=== PATIENT | female | born 1970 | race Caucasian/White ===

== ENCOUNTER 2018-10-18 11:53 | Day surgery (SDC) | payer OTHER, SELFPAY ==
[2018-10-18] VITALS (7 sets, daily range): BP systolic 108–118; BP diastolic 61–77; PULSE 80–93; RESP 14–20; TEMP 36.3–36.8; O2SAT 97–99; BMI 32.6
[2018-10-18] MEDS: SODIUM CHLORIDE 0.9% 1,000 ML 200 ML IV (12:18)
--- NOTE | 2018-10-18 12:40 | P.HP_ITS ---
History of Present Illness Date Patient Seen: 10/18/18 Time Patient Seen: 12:38 Chief complaint: [id number] Narrative: 48yo F for first low risk screening colonoscopy. No family history, no alarm symptoms. Had extended diarrhea after long travel earlier this year but nothing on workup and has resolved. Patient History Medical History Obstructive sleep apnea of adult (Chronic) Snoring (Chronic) GERD (gastroesophageal reflux disease) (Chronic) Surgical History History of third molar tooth extraction Family History Father Age: 80 Diabetes mellitus Heart disease Grandfather Cancer Grandfather Heart disease Social History (Updated 06/25/18 @ 20:33 by JASWANT Mathews) marital status: details: to Scott Bosch, lives in [place] household members: spouse lives independently: Yes caregiver/support person: No housing: house Family & Social History Family History Father Age: 80 Diabetes mellitus Heart disease Grandfather Cancer Grandfather Heart disease Social History: household members spouse lives independently Yes caregiver/support person No Meds Home Medications Medication Instructions Recorded Confirmed Type norgestimate-ethinyl estradiol 1 ea PO QDAY #3 packet 04/12/17 10/18/18 Rx [Ortho Tri-Cyclen (28)] Resprionics Dreamstation CPAP #1 ea 06/22/18 06/22/18 History Allergies Allergy/AdvReac Type Severity Reaction Status Date / Time No Known Drug Allergies Allergy Unverified 06/22/18 15:59 Review of Systems Constitutional Constitutional: Reports as per HPI Exam Vital Signs (past 8 hours): - 10/18/18 12:15 Temperature 97.4 F L Pulse Rate 89 Respiratory Rate 16 Blood Pressure 116/72 Pulse Oximetry 97 Oxygen Delivery Method Room Air Narrative Exam Narrative: AAO, NAD, female of healthy weight EOMI, MMM, no scleral icterus unlabored RA soft, nt/nd MAEW visible skin dry and intact Assessment & Plan (1) Screening for colorectal cancer: Current visit: Yes Status: Acute Assessment & Plan narrative: low risk screening colonoscopy, all R/B/A discussed and pt wishes to proceed
[2018-10-18] MEDS: MIDAZOLAM 5 MG/5 ML VIAL IV (13:30)
[2018-10-18] MEDS: fentaNYL 250 MCG/5 ML INJ IV (13:31)
[2018-10-18] MEDS: ONDANSETRON 4 MG/2 ML INJ IV (13:33)
--- NOTE | 2018-10-18 14:00 | PM.OP.ENDO ---
Operative Date/Time/Diagnoses Date of procedure: 10/18/18 Time of procedure: 14:00 Pre-op diagnosis: Need for screening colonoscopy Post-op diagnosis: same Procedure & Clinicians Study performed: Low risk screening colonoscopy Same procedure as scheduled: Yes Indications: 48yo F with no family history nor alarm symptoms for screening colonoscopy. Surgeon: Bernadette Khalil Procedure Notes SCOAP/Timeout: 1246 Procedure in detail: After obtaining informed consent, the patient was brought to the GI suite and placed in the left lateral decubitus position on the examination table. After placement of appropriate monitors, the patient was given incremental doses of Versed and Fentanyl until an appropriate level of sedation was achieved. A time out was held per SCOAP protocol. A digital rectal examination was performed and did not reveal any masses or obstructing lesions. The colonoscope was gently passed into the patient's anus and the entire colon navigated to the level of the cecum with some difficulty at a tight splenic flexure. Change of position and pressure did not help so scope was exchanged for pediatric and the turn was navigated. Prep was adequate. Once in the cecum, the scope was slowly withdrawn being sure to go before and beyond all mucosal folds and prominences as able to get a thorough examination. No masses or polyps are noted. No other abnormal findings noted. At the level of the rectal vault, the scope was retroflexed and the internal anal canal was examined. The scope was straightened and air aspirated from the colon. The instrument was removed from the patient's body and the procedure was concluded. The patient was allowed to awaken from sedation without difficulty and taken to the post-anesthesia care unit in good condition. Scope withdrawal time: 9 min Sedation minutes: 42 Specimen(s): none sent Complications: none Impression: Normal colon Good prep Recommendations: Colonscopy in 10 years Follow up: as needed Disposition: PACU
== END 2018-10-18 14:20 | disposition home or self-care (01) ==
PROVIDERS: PCP Internal Medicine; Visit Provider Surgery
PROC: 0DJD8ZZ Inspection of Lower Intestinal Tract, Via Natural or Artificial Opening Endoscopic (ICD-10-PCS; CPT 45378; principal; 2018-10-18 13:00)
DX: Z12.11 Encounter for screening for malignant neoplasm of colon (principal); G47.33 Obstructive sleep apnea (adult) (pediatric); K21.9 Gastro-esophageal reflux disease without esophagitis
CPT/HCPCS: 45378; 99152; 99153; J2250; J2405; J3010

== ENCOUNTER → 2020-02-11 11:38 | Outpatient (CLI) | payer OTHER, SELFPAY ==
--- NOTE | 2020-02-11 | DI.MG.S_ITS ---
BILATERAL DIGITAL SCREENING MAMMOGRAM 3D/2D WITH CAD: 02/11/2020 CLINICAL: Routine screening. Comparison is made to exams dated: 07/17/2017 mammogram and 07/02/2014 mammogram - [facility]. The tissue of both breasts is heterogeneously dense. This may lower the sensitivity of mammography. Current study was also evaluated with a Computer Aided Detection (CAD) system. No significant masses, calcifications, or other findings are seen in either breast. There has been no significant interval change. IMPRESSION: NEGATIVE There is no mammographic evidence of malignancy. A 1 year screening mammogram is recommended. This exam was interpreted at Station ID: [id number]. NOTE: For mammograms, a report in lay terms will be sent to the patient. Approximately 15% of breast malignancies will not be visualized mammographically. In the management of a palpable breast mass, a negative mammogram must not discourage biopsy of a clinically suspicious lesion. Electronically Signed By: Kroi solano/tip:02/11/2020 15:18:28 letter sent: Normal Exam ACR BI-RADS Category 1: Negative 3341F
== END ==
PROVIDERS: PCP Internal Medicine; Referring Provider Internal Medicine; Visit Provider Internal Medicine
DX: Z12.31 Encounter for screening mammogram for malignant neoplasm of breast (principal)
CPT/HCPCS: 77063; 77067

== ENCOUNTER → 2020-08-28 09:10 | Outpatient (CLI) | payer OTHER, SELFPAY ==
[2020-08-28 10:32] LABS: COVID19 -Nasal RAPID Negative (Negative)
== END ==
PROVIDERS: PCP Internal Medicine; Referring Provider Family Medicine Sleep Medicine; Visit Provider Family Medicine Sleep Medicine
DX: Z20.822 Contact with and (suspected) exposure to COVID-19 (principal)
CPT/HCPCS: 87635; C9803

== ENCOUNTER → 2022-04-21 07:49 | Outpatient (CLI) | payer BC, SELFPAY ==
--- NOTE | 2022-04-21 | DI.MG.S_ITS ---
BILATERAL DIGITAL SCREENING MAMMOGRAM 3D/2D WITH CAD: 04/21/2022 CLINICAL: Routine screening. Comparison is made to exams dated: 02/11/2020 mammogram, 07/17/2017 mammogram, and 07/02/2014 mammogram - [facility]. Both breasts are heterogeneously dense, which may obscure small masses (category c / 51-75% glandular tissue). Current study was also evaluated with a Computer Aided Detection (CAD) system. No significant masses, calcifications, or other findings are seen in either breast. There has been no significant interval change. IMPRESSION: NEGATIVE There is no mammographic evidence of malignancy. A 1 year screening mammogram is recommended. Based on the Tyrer Cuzick model (a risk assessment model) the patient's lifetime risk is 13.2% and her 10 year risk is 3.7%. According to the ACR, ACS, and NCCN guidelines, an annual breast MRI exam along with mammogram is recommended if the patient's lifetime risk is 20% or greater. This exam was interpreted at Station ID: [id number]. NOTE: For mammograms, a report in lay terms will be sent to the patient. Approximately 15% of breast malignancies will not be visualized mammographically. In the management of a palpable breast mass, a negative mammogram must not discourage biopsy of a clinically suspicious lesion. Electronically Signed By: Jonathan Gresham M.D., jr/tip:04/21/2022 12:49:41 letter sent: Normal Exam ACR BI-RADS Category 1: Negative 3341F
== END ==
PROVIDERS: PCP Internal Medicine; Referring Provider Internal Medicine; Visit Provider Internal Medicine
DX: Z12.31 Encounter for screening mammogram for malignant neoplasm of breast (principal)
CPT/HCPCS: 77063; 77067

== ENCOUNTER → 2022-06-03 07:51 | Outpatient (CLI) | payer BC, SELFPAY ==
[2022-06-03 08:55] LABS: Add Manual Diff / Slide Review NO; Basophils Absolute Auto 0 /uL (0-100); Basophils Percent Auto 0.7 % (0-2); Eosinophils Absolute Auto 200 /uL (0-450); Eosinophils Percent Auto 2.5 % (2-4); Hematocrit 38.1 % (36-46); Lymphocytes Absolute Auto 1700 /uL (1100-4500); Lymphocytes Percent Auto 24.5 % (25-40); Mean Corpuscular HGB Conc 34.2 % (30-36); Mean Corpuscular Hemoglobin 29.8 PG (26-34); Mean Corpuscular Volume 87.3 fL (80-100); Monocytes Absolute Auto 500 /uL (0-900); Monocytes Percent Auto 7.4 % (3-14); Neutrophils Absolute Auto 4600 /uL (1500-7000); Neutrophils Percent Auto 64.9 % (50-75); Platelet Count 221 X10^3/uL (150-400); Red Blood Cell Count 4.37 X10^6/uL (4.0-5.2); Red Cell Distribution Width 13.2 % (11.6-14.8); White Blood Cell Count 7.1 X10^3/uL (4.5-11.0)
[2022-06-03 09:09] LABS: Alanine Aminotransferase 41 IU/L (<35); Albumin 4.5 g/dL (3.5-5.0); Albumin Globulin Ratio 1.7 (1.0-2.8); Alkaline Phosphatase 54 U/L (38-126); Aspartate Aminotransferase 34 IU/L (14-36); BUN Creatinine Ratio 14.5 (6-22); Bilirubin Total 0.6 mg/dL (0.2-1.3); Blood Urea Nitrogen 10 mg/dL (7-17); Calcium 9.2 mg/dL (8.4-10.2); Carbon Dioxide 26 mmol/L (22-32); Chloride 106 mmol/L (98-107); Cholesterol 175 mg/dL (140-199); Estimated Glomerular Filt Rate > 60 mL/min (>60); Globulin 2.7 g/dL (1.7-4.1); Glucose 102 mg/dL (70-100); HDL Cholesterol 69 mg/dL (40-60); HEMOLYSIS < 15 (0-50); LDL Cholesterol Calculated 91 mg/dL (<100); Sodium 139 mmol/L (137-145); Total Protein 7.2 g/dL (6.3-8.2); Triglycerides 76 mg/dL (35-150)
[2022-06-03 09:25] LABS: Follicle Stimulating Hormone 40.2 mIU/mL
[2022-06-03 09:39] LABS: Thyroid Stimulating Hormone 1.17 uIU/mL (0.47-4.68)
== END ==
PROVIDERS: PCP Internal Medicine; Referring Provider Internal Medicine; Visit Provider Internal Medicine
DX: Z00.00 Encounter for general adult medical examination without abnormal findings (principal); E78.1 Pure hyperglyceridemia; K21.9 Gastro-esophageal reflux disease without esophagitis; Z30.41 Encounter for surveillance of contraceptive pills
CPT/HCPCS: 36415; 80053; 80061; 83001; 84443; 85025

== ENCOUNTER → 2023-04-18 13:52 | Outpatient (CLI) | payer BC, SELFPAY ==
--- NOTE | 2023-04-18 | DI.MG.S_ITS ---
BILATERAL DIGITAL SCREENING MAMMOGRAM 3D/2D WITH CAD: 04/18/2023 CLINICAL: Routine screening. Comparison is made to exams dated: 04/21/2022 mammogram, 02/11/2020 mammogram, and 07/17/2017 mammogram - [facility]. Both breasts are heterogeneously dense, which may obscure small masses (category c / 51-75% glandular tissue). Current study was also evaluated with a Computer Aided Detection (CAD) system. No significant masses, calcifications, or other findings are seen in either breast. There has been no significant interval change. IMPRESSION: NEGATIVE There is no mammographic evidence of malignancy. A 1 year screening mammogram is recommended. Based on the Tyrer Cuzick model (a risk assessment model) the patient's lifetime risk is 13.0% and her 10 year risk is 3.8%. According to the ACR, ACS, and NCCN guidelines, an annual breast MRI exam along with mammogram is recommended if the patient's lifetime risk is 20% or greater. This exam was interpreted at Station ID: [id number]. NOTE: For mammograms, a report in lay terms will be sent to the patient. Approximately 15% of breast malignancies will not be visualized mammographically. In the management of a palpable breast mass, a negative mammogram must not discourage biopsy of a clinically suspicious lesion. Electronically Signed By: Oskar gordillo/tip:04/18/2023 16:19:21 letter sent: Normal Exam ACR BI-RADS Category 1: Negative [id number]
== END ==
LOC: MAMMO 13:53
PROVIDERS: PCP Nurse Practitioner Family; Referring Provider Nurse Practitioner Family; Visit Provider Nurse Practitioner Family
DX: Z12.31 Encounter for screening mammogram for malignant neoplasm of breast (principal); R92.333 Mammographic heterogeneous density, bilateral breasts
CPT/HCPCS: 77063; 77067